=== PATIENT | female | born 1970 | race Caucasian/White ===

== ENCOUNTER → 2023-06-09 13:55 | Outpatient (REF) | payer BC, SELFPAY | LOC: WDC 13:55 | PROVIDERS: ATTENDING PHYSICIAN Family Medicine | DX: Z12.31 Encounter for screening mammogram for malignant neoplasm of breast (principal) | CPT/HCPCS: 77063; 77067 ==

== ENCOUNTER → 2023-09-20 14:36 | Outpatient (REF) | payer BC, SELFPAY | LOC: HWEVLT 14:36 | PROVIDERS: ATTENDING PHYSICIAN Radiology Vascular & Interventional Radiology | DX: I83.891 Varicose veins of right lower extremity with other complications (principal) | CPT/HCPCS: 93971 ==

== ENCOUNTER → 2023-12-17 06:32 | Day surgery (SDC) | payer BC, SELFPAY | LOC: GI 06:32 | PROVIDERS: ATTENDING PHYSICIAN Internal Medicine | DX: Z12.11 Encounter for screening for malignant neoplasm of colon (principal); K57.30 Diverticulosis of large intestine without perforation or abscess without bleeding | CPT/HCPCS: G0121 ==

== ENCOUNTER → 2023-12-25 14:24 | Outpatient (REF) | payer BC, SELFPAY | LOC: HWEVLT 14:24 | PROVIDERS: ATTENDING PHYSICIAN Radiology Diagnostic Radiology | DX: I83.891 Varicose veins of right lower extremity with other complications (principal) | CPT/HCPCS: 36478 ==

== ENCOUNTER → 2024-01-29 15:30 | Outpatient (REF) | payer BC, SELFPAY | LOC: HWEVLT 15:30 | PROVIDERS: ATTENDING PHYSICIAN Radiology Diagnostic Radiology | DX: I83.891 Varicose veins of right lower extremity with other complications (principal) | CPT/HCPCS: 93971 ==

== ENCOUNTER → 2024-03-19 11:21 | Outpatient (REF) | payer OTHER, SELFPAY | LOC: OHS 11:21 | PROVIDERS: ATTENDING PHYSICIAN Nurse Practitioner Family; REFERRING PHYSICIAN Psychiatry & Neurology Neurology | DX: M54.50 Low back pain, unspecified (principal) | CPT/HCPCS: 72100 ==

== ENCOUNTER → 2024-04-14 16:34 | Outpatient (REF) | payer OTHER, SELFPAY | LOC: RAD 16:34 | PROVIDERS: ATTENDING PHYSICIAN Physical Medicine & Rehabilitation; FAMILY PHYSICIAN Family Medicine; REFERRING PHYSICIAN Orthopaedic Surgery Orthopaedic Surgery of the Spine | DX: M54.16 Radiculopathy, lumbar region (principal) | CPT/HCPCS: 72131 ==

== ENCOUNTER → 2024-05-12 11:19 | Outpatient (REF) | payer BC, SELFPAY ==
[2024-05-13 14:49] LABS: Amphetamine, Urine PresumptivePOS ng/mL (Cutoff 300); Barbiturates, Urine Negative ng/mL (Cutoff 200); Benzodiazepines, Urine Negative ng/mL (Cutoff 200); Buprenorphine, Urine Negative ng/mL (Cutoff 5); Carisoprodol, Urine Negative ng/mL (Cutoff 100); Cocaine, Urine Negative ng/mL (Cutoff 150); Creatinine, Urine 132.2 mg/dL (20.0-400.0); Ethyl Glucuronide, Urine Negative ng/mL (Cutoff 500); Fentanyl, Urine Negative ng/mL (Cutoff 1); Marijuana, Urine Negative ng/mL (Cutoff 50); Meperidine, Urine Negative ng/mL (Cutoff 200); Methadone, Urine Negative ng/mL (Cutoff 150); Opiates, Urine Negative ng/mL (Cutoff 300); Oxycodone/Oxymorphone, Urine Negative ng/mL (Cutoff 100); PCP (Phencyclidine), Urine Negative ng/mL (Cutoff 25); Propoxyphene, Urine Negative ng/mL (Cutoff 300); Tapentadol, Urine Negative ng/mL (Cutoff 200); Tramadol, Urine Negative ng/mL (Cutoff 100); Zolpidem, Urine Negative ng/mL (Cutoff 20)
== END ==
LOC: REG 11:19
PROVIDERS: ATTENDING PHYSICIAN Physician Assistant Surgical; FAMILY PHYSICIAN Family Medicine
DX: Z51.81 Encounter for therapeutic drug level monitoring (principal); Z79.891 Long term (current) use of opiate analgesic
CPT/HCPCS: 80307; 80325; 80359

== ENCOUNTER 2024-06-05 09:59 | Outpatient (RCR) | payer OTHER, BC, SELFPAY | END 2024-06-05 23:59 | disposition home or self-care (01) | LOC: RPT 09:59 | PROVIDERS: ATTENDING PHYSICIAN Physical Medicine & Rehabilitation; FAMILY PHYSICIAN Family Medicine | DX: M53.3 Sacrococcygeal disorders, not elsewhere classified (principal); Z73.6 Limitation of activities due to disability; M62.81 Muscle weakness (generalized); R26.2 Difficulty in walking, not elsewhere classified; M54.50 Low back pain, unspecified; G89.29 Other chronic pain; Z98.1 Arthrodesis status; X50.9XXD Other and unspecified overexertion or strenuous movements or postures, subsequent encounter; Y93.89 Activity, other specified; Y92.89 Other specified places as the place of occurrence of the external cause; Y99.0 Civilian activity done for income or pay | CPT/HCPCS: 97010; 97110; 97112; 97140; 97162; 97530 ==

== ENCOUNTER → 2024-06-11 15:05 | Outpatient (REF) | payer BC, SELFPAY | LOC: WDC 15:05 | PROVIDERS: ATTENDING PHYSICIAN Family Medicine | DX: Z12.31 Encounter for screening mammogram for malignant neoplasm of breast (principal) | CPT/HCPCS: 77063; 77067 ==

== ENCOUNTER 2024-07-03 10:57 | Outpatient (RCR) | payer OTHER, BC, SELFPAY ==
[2024-07-03 13:35] LABS: Blood Urea Nitrogen 16 mg/dl (7-17)
== END 2024-07-03 23:59 | disposition home or self-care (01) ==
LOC: RPT 10:57
PROVIDERS: ATTENDING PHYSICIAN Physical Medicine & Rehabilitation; FAMILY PHYSICIAN Family Medicine; OTHER PHYSICIAN Physician Assistant Surgical
DX: M53.3 Sacrococcygeal disorders, not elsewhere classified (principal); Z73.6 Limitation of activities due to disability; M62.81 Muscle weakness (generalized); R26.2 Difficulty in walking, not elsewhere classified; R26.89 Other abnormalities of gait and mobility; M54.50 Low back pain, unspecified; X58.XXXD Exposure to other specified factors, subsequent encounter; G89.29 Other chronic pain; Y93.89 Activity, other specified; X50.9XXD Other and unspecified overexertion or strenuous movements or postures, subsequent encounter; Z98.1 Arthrodesis status; Y92.89 Other specified places as the place of occurrence of the external cause; Y99.0 Civilian activity done for income or pay; Z96.641 Presence of right artificial hip joint
CPT/HCPCS: 36415; 82565; 84520; 97010; 97110; 97112; 97530

== ENCOUNTER → 2024-07-06 07:37 | Outpatient (REF) | payer OTHER, BC, SELFPAY | LOC: MRI 07:37 | PROVIDERS: ATTENDING PHYSICIAN Physician Assistant Surgical; FAMILY PHYSICIAN Orthopaedic Surgery Orthopaedic Surgery of the Spine | DX: M54.16 Radiculopathy, lumbar region (principal) | CPT/HCPCS: 72158; A9575 ==

== ENCOUNTER → 2024-09-10 09:42 | Outpatient (REF) | payer BC, SELFPAY ==
[2024-09-10 10:44] LABS: % Basophils 0.7 % (0-2); % Eosinophils 1.5 % (0-6); % Immature Granulocytes 0.2 % (0-0.5); % Lymphocytes 46.3 % (20.5-51.1); % Neutrophils 44.3 % (42.2-75.2); Absolute Eosinophils 0.1 10^3/uL (0-0.7); Absolute Lymphocytes 2.1 10^3/uL (1.2-3.4); Absolute Monocytes 0.3 10^3/uL (0.1-0.6); Hematocrit 34.5 % (37.0-47.0); Hemoglobin 11.8 g/dL (12.0-16.0); Mean Corp Hgb Conc. 34.2 g/dL (33.0-37.0); Mean Corpuscular Hgb 29.6 pg (27.0-31.0); Mean Corpuscular Volume 86.7 fL (81.0-99.0); Mean Platelet Volume 9.3 fL (7.4-10.4); Nucleated Red Blood Cells % 0 %; Platelet Count 171 10^3/uL (130-400); Red Blood Cell Count 3.98 10^6/uL (4.20-5.40); Red Cell Dist. Width 12.5 % (11.5-14.5); White Blood Cell Count 4.6 10^3/uL (4.8-10.8)
[2024-09-10 11:01] LABS: Amphetamines Negative (Negative); Barbiturates Negative (Negative); Benzodiazepines Negative (Negative); Buprenorphine Positive (Negative)
[2024-09-10 11:02] LABS: Cocaine Negative (Negative); Marijuana Negative (Negative); Methadone Negative (Negative); Methamphetamines Negative (Negative); Opiates Negative (Negative); Phencyclidine Negative (Negative); Tricyclic Antidepressants Negative (Negative)
[2024-09-10 11:19] LABS: ALT (SGPT) < 10 U/L (0-35); AST (SGOT) 19 U/L (14-36); Alkaline Phosphatase 42 U/L (38-126); Blood Urea Nitrogen 12 mg/dl (7-17); Calcium 9.6 mg/dl (8.4-10.2); Carbon Dioxide 23 mmol/L (22-30); Chloride 107 mmol/L (98-107); Glucose 99 mg/dl (70-99); HDL Cholesterol 87 mg/dl; LDL Cholesterol, Calculated 114 mg/dl; Potassium 3.8 mmol/L (3.5-5.1); Sodium 143 mmol/L (135-145); Total Cholesterol 220 mg/dl (50-199); Total Protein 7.2 g/dl (6.3-8.2); Triglyceride 95 mg/dl (10-149); Very Low Density Lipoprotein 19 mg/dl (0-30); eGFR > 60.00
[2024-09-10 11:22] LABS: Fentanyl, Urine Negative (Negative)
[2024-09-10 11:38] LABS: TSH 2.82 uIU/ml (0.47-4.68)
[2024-09-11 19:02] LABS: CA 125 < 5.5 U/mL (0-35)
== END ==
LOC: REG 09:42
PROVIDERS: ATTENDING PHYSICIAN Family Medicine; REFERRING PHYSICIAN Physician Assistant Surgical
DX: I10 Essential (primary) hypertension (principal); E78.5 Hyperlipidemia, unspecified; R53.83 Other fatigue; M54.50 Low back pain, unspecified; Z51.81 Encounter for therapeutic drug level monitoring; Z79.891 Long term (current) use of opiate analgesic; M54.12 Radiculopathy, cervical region; F32.A Depression, unspecified; M47.812 Spondylosis without myelopathy or radiculopathy, cervical region
CPT/HCPCS: 36415; 80053; 80061; 80306; 80307; 84443; 85025; 86304

== ENCOUNTER → 2024-09-10 09:47 | Outpatient (REF) | payer OTHER, SELFPAY | LOC: RAD 09:47 | PROVIDERS: ATTENDING PHYSICIAN Psychiatry & Neurology Neurology | DX: M25.552 Pain in left hip (principal) | CPT/HCPCS: 73502 ==

== ENCOUNTER → 2024-09-23 07:49 | Outpatient (REF) | payer OTHER, SELFPAY | LOC: HWRAD 07:49 | PROVIDERS: ATTENDING PHYSICIAN Physician Assistant Surgical; FAMILY PHYSICIAN Family Medicine | DX: M53.3 Sacrococcygeal disorders, not elsewhere classified (principal) | CPT/HCPCS: 72192 ==

== ENCOUNTER → 2025-01-10 09:33 | Outpatient (REF) | payer BC, SELFPAY | LOC: REG 09:33 | PROVIDERS: ATTENDING PHYSICIAN Physician Assistant Surgical | DX: Z79.891 Long term (current) use of opiate analgesic (principal); Z51.81 Encounter for therapeutic drug level monitoring; M54.50 Low back pain, unspecified | CPT/HCPCS: 80306; 80307 ==

== ENCOUNTER → 2025-01-17 07:45 | Outpatient (REF) | payer BC, SELFPAY | LOC: RAD 07:45 | PROVIDERS: ATTENDING PHYSICIAN Physician Assistant Surgical; FAMILY PHYSICIAN Family Medicine | DX: M25.551 Pain in right hip (principal) | CPT/HCPCS: 73502 ==

== ENCOUNTER → 2025-03-07 10:09 | Outpatient (REF) | payer BC, SELFPAY ==
[2025-03-07 11:32] LABS: FSH 130.0 mIU/ml
[2025-03-07 11:55] LABS: Ferritin 27.6 ng/ml (11.1-264.0)
[2025-03-07 12:26] LABS: Folate 6.1 ng/ml (2.76-20); Vitamin B12 363 pg/ml (239-931)
== END ==
LOC: REG 10:09
PROVIDERS: ATTENDING PHYSICIAN Physician Assistant Surgical; FAMILY PHYSICIAN Family Medicine
DX: Z51.81 Encounter for therapeutic drug level monitoring (principal); M54.50 Low back pain, unspecified; Z79.891 Long term (current) use of opiate analgesic; D50.0 Iron deficiency anemia secondary to blood loss (chronic); N95.1 Menopausal and female climacteric states
CPT/HCPCS: 36415; 80306; 80307; 82607; 82670; 82728; 82746; 83001; 83002

== ENCOUNTER → 2025-04-23 11:22 | Outpatient (REF) | payer OTHER, SELFPAY | LOC: RAD 11:22 | PROVIDERS: ATTENDING PHYSICIAN Physician Assistant Surgical | DX: I82.401 Acute embolism and thrombosis of unspecified deep veins of right lower extremity (principal) | CPT/HCPCS: 93971 ==